=== PATIENT | male | born 1970 | race Caucasian/White ===

== ENCOUNTER → 2020-06-01 13:58 | Outpatient (CLI) | payer OTHER, SELFPAY ==
--- NOTE | 2020-06-01 15:00 | NEURO ---
NCS and/or EMG Patient Report Ordering Doctor: Riki Khan DATE OF SERVICE: 06/01/20 Aki Oshea is a 49-year-old male who presents for electrodiagnostic testing of the left upper limb. He reports numbness and tingling in the left hand, worsening over the past 3 months. Electrodiagnostic findings: Left median motor nerve demonstrates prolonged distal latency with normal amplitude and conduction velocity. Normal left ulnar motor response. Prolonged left median F-wave. Prolonged left median sensory latency at the wrist. Normal left ulnar and radial sensory responses. On needle EMG, all muscles tested in the left upper limb showed no evidence of denervation with normal motor unit action potentials. Electrodiagnostic impression: This is an abnormal study in the left upper limb. 1. Electrodiagnostic findings demonstrate left-sided median mononeuropathy. This is consistent with a mild left carpal tunnel syndrome. If there are any further questions, please do not hesitate to contact me.
== END ==
PROVIDERS: PCP Family Medicine; Referring Provider Family Medicine; Visit Provider Family Medicine
DX: R20.0 Anesthesia of skin (principal); R20.2 Paresthesia of skin; M79.642 Pain in left hand
CPT/HCPCS: 95886; 95909